=== PATIENT | female | born 1965 | race Caucasian/White ===

== ENCOUNTER 2022-10-03 16:10 | Outpatient (REF) | payer MEDICAID, SELFPAY ==
[2022-10-03 17:46] LABS: Bilirubin Negative (Negative); Blood Small (Negative); Clarity Clear (Clear); Glucose Negative (Negative); Ketones Negative (Negative); Leukocyte Esterase Negative (Negative); Nitrite Negative (Negative); Urobilinogen 0.2 EU/dL (Up TO 0.2)
[2022-10-03 18:06] LABS: Bacteria Negative HPF (Negative); C & S Indicated? No; Casts Negative LPF (Negative); Crystals Negative HPF (Negative); Epithelial Cells Few HPF (Negative); Mucus Negative (Negative)
== END 2022-10-03 16:11 | disposition home or self-care (01) ==
LOC: LBN 16:10
PROVIDERS: PCP Nurse Practitioner Family; Visit Provider Nurse Practitioner Gerontology
DX: R31.9 Hematuria, unspecified (principal)
CPT/HCPCS: 81003; 81015

== ENCOUNTER 2022-10-31 08:04 | Day surgery (SDC) | payer MEDICAID, SELFPAY ==
[2022-10-31 08:19] VITALS: BP 127/71; PULSE 63; RESP 16; TEMP 36.7; O2SAT 100
[2022-10-31] MEDS: Lactated Ringers 1,000 ML 80 ML IV (08:40)
--- NOTE | 2022-10-31 09:01 | ANES.PREOP_ITS ---
General Info Date of Service Date Performed: 10/31/22 Height: 5 ft 6 in Weight: 53.5 kg Body Mass Index (BMI): 19.0 Surgical Procedure: Operation Date: 10/31/22 09:40 Proposed Procedure Side Surgeon p Cystoscopy/Retrograde Bilateral Pato Cody MD Meds Allergies and Home Medications Allergies Allergy/AdvReac Type Severity Reaction Status Date / Time tetracycline Allergy vomitting Unverified 10/30/22 14:39 chantix Allergy worsening Uncoded 10/30/22 14:39 mood nicotine Allergy skin rash Uncoded 10/30/22 14:39 with patch wellburtrin Allergy tongue Uncoded 10/30/22 14:39 swelling Home Medication Medication Instructions Recorded L.acidoph, paracasei,B. lactis 10 10 cell PO TID 06/05/22 billion cell capsule (Digestive Advantage Advanced Probiotic) albuterol sulfate 90 mcg/actuation 2 puff inhalation Q6H PRN 06/05/22 aerosol inhaler (ProAir HFA) nicotine 10 mg inhalation 1 inh inhalation 4-6XD PRN 06/05/22 cartridge (Nicotrol) pantoprazole 40 mg tablet,delayed 40 mg PO DAILY 06/05/22 release propylene glycol 0.6 % eye drops 1 drp ophthalmic (eye) DAILY PRN 06/05/22 (Systane Balance) azathioprine 50 mg tablet 50 mg PO DAILY 10/03/22 budesonide 3 mg 3 mg PO DAILY 10/03/22 capsule,delayed,extended release Current Visit Medications: Current Medications Generic Name Dose Route Start Last Admin Trade Name Freq PRN Reason Stop Dose Admin Ringer's Solution 1,000 mls @ 80 mls/hr 10/31/22 06:00 10/31/22 08:40 IV 11/29/22 23:59 80 mls/hr INFUSION ROBERT Administration Cefazolin Sodium/Dextrose 2 gm in 50 mls @ 100 mls/hr 10/31/22 06:00 Ancef Duplex IVPB 11/29/22 23:59 PREOP ROBERT IV Miscellaneous Supplies 1 each 10/31/22 06:00 Iv Access IV 11/29/22 23:59 DIRECTED ROBERT Sodium Chloride 0 ml 10/31/22 06:00 Normal Saline Flush 10 Ml Syr IV 11/29/22 23:59 PRN PRN Sodium Chloride 0 ml 10/31/22 06:00 Normal Saline 10 Ml Vial IJ 11/29/22 23:59 DIRECTED PRN Sterile Water 0 ml 10/31/22 06:00 Water,Injection,Sterile 10 Ml Vial IJ 11/29/22 23:59 DIRECTED PRN PFSH Active Problems Active Problems: Problem Status Onset Code Tobacco abuse Z72.0 Dysthymia F34.1 Hyperlipidemia E78.5 Elevated liver enzymes R74.8 GERD (gastroesophageal reflux disease) K21.9 Chronic abdominal pain R10.9, G89.29 Chronic diarrhea K52.9 Urinary frequency R35.0 Hematuria R31.9 Medical History Medical History Headache Tobacco use Surgical History Surgical History Ligation of fallopian tube Vaginal hysterectomy 2007 for fibroid uterus. ovarian conservation. Unclear if fallopian tubes remain. Tobacco Smoking/Tobacco Use Status: Current every day Tobacco Type: cigarettes Alcohol Alcohol Intake: current Alcohol intake frequency: holidays/special occasions only Substance Use Substance use: Never Substance use type: does not use Vital Signs and Lab Results Vital Signs Most Recent Vital Signs in EMR: Most Recent Vital Signs Temp Pulse Resp BP Pulse Ox 36.7 C 63 16 127/71 100 10/31/22 08:19 10/31/22 08:19 10/31/22 08:19 10/31/22 08:19 10/31/22 08:19 Lab Results Blood Type / Crossmatch: No Data to Display Complete Blood Count: No Data to Display Complete Metabolic Panel: No Data to Display Liver Function Panel: No Data to Display Coagulation Panel: No Data to Display Cardiac Panel: No Data to Display Arterial Blood Gas: No Data to Display Venous Blood Gas: No Data to Display Pancreas Panel: No Data to Display Thyroid Panel: No Data to Display Infectious Disease: No Data to Display Blood Cultures: No Data to Display Toxicology Panel: No Data to Display Anesthesia Assessment and Plan Anesthesia History Personal History: No History of Anesthesia Complications Family History: No Family History of Anesthesia Complications Exercise Tolerance Exercise Tolerance: Metabolic Equivalents>4 Pertinent Negatives Pertinent Negatives: No Symptoms of GERD, No Major Cardiovascular Symptoms or Complaints, No Major Pulmonary Symptoms or Complaints and No History of CVA/TIA Cardiac & Pulmonary Exam Cardiac Exam: Normal S1/S2 Heart Sounds Pulmonary Exam: Clear Bilateral Breath Sounds Implantable Cardiac Device Does patient have a Pacemaker or an ICD?: No Airway Exam Known Difficult Airway: No Mallampati Class: 2 Mouth Opening: Normal (> 3cm) Thyromental Distance: Greater than 3 cm Neck Range of Motion: Full ROM Neck Circumference: Normal Teeth Condition: Normal Dentition ASA Classification ASA Score: ASA 2 Emergency Case?: No NPO Status NPO Status: NPO Clears >2 hours, Solids >8 hours Anesthesia Plan Resuscitation Status: Full Code Anesthesia Technique: General Anesthesia Airway Planned: Natural Airway Monitors Used: Standard Monitors Preoperative Comments:: History of GERD symptoms and not on anything for it at this time. Reviewed recent EGD/[facility] at [facility] [place], conscious sedation used, no ETT. Will wedge the patient and continue with original plan of GETA with natural airway.
[2022-10-31 09:02] VITALS: BMI 19.0
--- NOTE | 2022-10-31 09:08 | W.PM.HP.N ---
Date of service: 10/31/22 Time of Service: 09:11 Assessment and Plan Assessment and plan (1) Hematuria: Status: Acute Assessment and plan: We will complete her microscopic hematuria work-up with a cystoscopy and bilateral retrograde pyelogram. We will be prepared to take a bladder biopsy or do a transurethral resection if we find any bladder pathology. History of Present Illness History of Present Illness Chief Complaint: Hematuria Narrative: This is a 57-year-old woman who has a history of microscopic hematuria. She had a negative hematuria work-up in 2016. In the past year, she had an episode of gross painless hematuria. The gross hematuria has resolved, but she continues to have greater than 3-5 red blood cells per high-power field on microscopic urinalysis. She has recently had a renal ultrasound at an outside facility which showed no evidence of renal mass or stone. She presents for cystoscopy with bilateral retrograde pyelogram to complete her hematuria work-up. Review of Systems Narrative: No fevers or chills No vision change or dysphasia No diabetes or thyroid dysfunction No shortness of breath, cough or hemoptysis No chest pain or palpitations GERD. Recent upper endoscopy and colonoscopy with polypectomy. No seizures, strokes or peripheral neuropathy No bleeding disorders or anemia No gout PFSH All Active Problems Tobacco abuse (Acute) Dysthymia (Acute) Hyperlipidemia (Acute) Elevated liver enzymes (Acute) GERD (gastroesophageal reflux disease) (Chronic) Chronic abdominal pain (Acute) Chronic diarrhea (Acute) Urinary frequency (Acute) Hematuria (Acute) Medical History Headache Tobacco use Surgical History Ligation of fallopian tube Vaginal hysterectomy 2007 for fibroid uterus. ovarian conservation. Unclear if fallopian tubes remain. Social History Smoking/Tobacco Use Status: Current every day Tobacco Type: cigarettes Smoking risk assessment performed?: Yes Alcohol Intake: current Alcohol Intake frequency: holidays/special occasions only Drug use: Never Substance use type: does not use Do you feel safe at home: Yes Do you feel safe in your relationship?: Yes Meds Allergies and Home Medications Allergies Allergy/AdvReac Type Severity Reaction Status Date / Time tetracycline Allergy vomitting Unverified 10/30/22 14:39 chantix Allergy worsening Uncoded 10/30/22 14:39 mood nicotine Allergy skin rash Uncoded 10/30/22 14:39 with patch wellburtrin Allergy tongue Uncoded 10/30/22 14:39 swelling Home Medications Medication Instructions Recorded Confirmed Type L.acidoph, paracasei,B. lactis 10 10 cell PO TID 06/05/22 10/31/22 History billion cell capsule (Digestive Advantage Advanced Probiotic) albuterol sulfate 90 mcg/actuation 2 puff inhalation Q6H PRN 06/05/22 10/31/22 History aerosol inhaler (ProAir HFA) nicotine 10 mg inhalation 1 inh inhalation 4-6XD PRN 06/05/22 10/31/22 History cartridge (Nicotrol) pantoprazole 40 mg tablet,delayed 40 mg PO DAILY 06/05/22 10/31/22 History release propylene glycol 0.6 % eye drops 1 drp ophthalmic (eye) DAILY PRN 06/05/22 10/31/22 History (Systane Balance) azathioprine 50 mg tablet 50 mg PO DAILY 10/03/22 10/31/22 History budesonide 3 mg 3 mg PO DAILY 10/03/22 10/31/22 History capsule,delayed,extended release Exam Const General: cooperative Neck Neck: supple Resp Effort & Inspection: normal respiratory effort Auscultation: clear to auscultation bilaterally Cardio Rate: regular rate Rhythm: regular rhythm GI Palpation: soft and no masses Neuro General: patient alert, patient awake and patient oriented x3 Results Last Vital Signs Temp 36.7 C 10/31/22 08:19 Pulse 63 10/31/22 08:19 Resp 16 10/31/22 08:19 BP 127/71 10/31/22 08:19 Pulse Ox 100 10/31/22 08:19 Time Spent Time spent with Patient: <40 minutes Time was spent: other
--- NOTE | 2022-10-31 09:09 | W.ANESPRE ---
General Info Date of Service Date Performed: 10/31/22 Height: 5 ft 6 in Weight: 53.5 kg Body Mass Index (BMI): 19.0 Surgical Procedure: Operation Date: 10/31/22 09:40 Proposed Procedure Side Surgeon p Cystoscopy/Retrograde Bilateral Pato Cody MD Meds Allergies and Home Medications Allergies Allergy/AdvReac Type Severity Reaction Status Date / Time tetracycline Allergy vomitting Unverified 10/30/22 14:39 chantix Allergy worsening Uncoded 10/30/22 14:39 mood nicotine Allergy skin rash Uncoded 10/30/22 14:39 with patch wellburtrin Allergy tongue Uncoded 10/30/22 14:39 swelling Home Medication Medication Instructions Recorded L.acidoph, paracasei,B. lactis 10 10 cell PO TID 06/05/22 billion cell capsule (Digestive Advantage Advanced Probiotic) albuterol sulfate 90 mcg/actuation 2 puff inhalation Q6H PRN 06/05/22 aerosol inhaler (ProAir HFA) nicotine 10 mg inhalation 1 inh inhalation 4-6XD PRN 06/05/22 cartridge (Nicotrol) pantoprazole 40 mg tablet,delayed 40 mg PO DAILY 06/05/22 release propylene glycol 0.6 % eye drops 1 drp ophthalmic (eye) DAILY PRN 06/05/22 (Systane Balance) azathioprine 50 mg tablet 50 mg PO DAILY 10/03/22 budesonide 3 mg 3 mg PO DAILY 10/03/22 capsule,delayed,extended release Current Visit Medications: Current Medications Generic Name Dose Route Start Last Admin Trade Name Freq PRN Reason Stop Dose Admin Ringer's Solution 1,000 mls @ 80 mls/hr 10/31/22 06:00 10/31/22 08:40 IV 11/29/22 23:59 80 mls/hr INFUSION ROBERT Administration Cefazolin Sodium/Dextrose 2 gm in 50 mls @ 100 mls/hr 10/31/22 06:00 Ancef Duplex IVPB 11/29/22 23:59 PREOP ROBERT IV Miscellaneous Supplies 1 each 10/31/22 06:00 Iv Access IV 11/29/22 23:59 DIRECTED ROBERT Sodium Chloride 0 ml 10/31/22 06:00 Normal Saline Flush 10 Ml Syr IV 11/29/22 23:59 PRN PRN Sodium Chloride 0 ml 10/31/22 06:00 Normal Saline 10 Ml Vial IJ 11/29/22 23:59 DIRECTED PRN Sterile Water 0 ml 10/31/22 06:00 Water,Injection,Sterile 10 Ml Vial IJ 11/29/22 23:59 DIRECTED PRN PFSH Active Problems Active Problems: Problem Status Onset Code Tobacco abuse Z72.0 Dysthymia F34.1 Hyperlipidemia E78.5 Elevated liver enzymes R74.8 GERD (gastroesophageal reflux disease) K21.9 Chronic abdominal pain R10.9, G89.29 Chronic diarrhea K52.9 Urinary frequency R35.0 Hematuria R31.9 Medical History Medical History Headache Tobacco use Surgical History Surgical History Ligation of fallopian tube Vaginal hysterectomy 2007 for fibroid uterus. ovarian conservation. Unclear if fallopian tubes remain. Tobacco Smoking/Tobacco Use Status: Current every day Tobacco Type: cigarettes Alcohol Alcohol Intake: current Alcohol intake frequency: holidays/special occasions only Substance Use Substance use: Never Substance use type: does not use Vital Signs and Lab Results Vital Signs Most Recent Vital Signs in EMR: Most Recent Vital Signs Temp Pulse Resp BP Pulse Ox 36.7 C 63 16 127/71 100 10/31/22 08:19 10/31/22 08:19 10/31/22 08:19 10/31/22 08:19 10/31/22 08:19 Lab Results Blood Type / Crossmatch: No Data to Display Complete Blood Count: No Data to Display Complete Metabolic Panel: No Data to Display Liver Function Panel: No Data to Display Coagulation Panel: No Data to Display Cardiac Panel: No Data to Display Arterial Blood Gas: No Data to Display Venous Blood Gas: No Data to Display Pancreas Panel: No Data to Display Thyroid Panel: No Data to Display Infectious Disease: No Data to Display Blood Cultures: No Data to Display Toxicology Panel: No Data to Display Anesthesia Assessment and Plan Anesthesia History Personal History: No History of Anesthesia Complications Family History: No Family History of Anesthesia Complications Exercise Tolerance Exercise Tolerance: Metabolic Equivalents>4 Cardiac & Pulmonary Exam Cardiac Exam: Normal S1/S2 Heart Sounds Pulmonary Exam: Clear Bilateral Breath Sounds Implantable Cardiac Device Does patient have a Pacemaker or an ICD?: No Airway Exam Known Difficult Airway: No Mallampati Class: 2 Mouth Opening: Normal (> 3cm) Thyromental Distance: Greater than 3 cm Neck Range of Motion: Full ROM Neck Circumference: Normal Teeth Condition: Normal Dentition
[2022-10-31] MEDS: ceFAZolin 2 GM/50 ML BAG IVPB (09:40)
[2022-10-31] MEDS: Lidocaine 2% Jelly 6 ML SYR (09:52)
[2022-10-31] MEDS: Omnipaque 300 MG/ML 50 ML BTL (09:54)
--- NOTE | 2022-10-31 09:59 | DI.RAD_ITS ---
Exam(s) XR RETROGRADE IN OR EXAM: XR RETROGRADE IN OR CLINICAL HISTORY: retrograde in or. TECHNIQUE: 2D digital imaging was performed. COMPARISON: No exams were available for comparison FINDINGS: Fluoroscopy was provided during retrograde urologic procedure. See procedure report for details. Total fluoroscopy time 31.8 seconds IMPRESSION: Radiation exposure index/cumulative radiation dose: bridgett Casper= 4.55mGy DATA REPOSITORY: RADIATION DOSE DELIVERED:
--- NOTE | 2022-10-31 10:02 | W.PM.DSUDISC ---
Date of service: 10/31/22 Time of Service: 10:02 Discharge Plan Disposition Patient Disposition: Home Condition: Stable Discharge Details Reason For Visit: cystoscopy Attending Provider: Pato Cody Primary Care Provider: Mary Christianson Home Meds and New Rx's Prescriptions: No Action azathioprine 50 mg tablet 50 mg PO DAILY budesonide 3 mg capsule,delayed,extend.release 3 mg PO DAILY Nicotrol 10 mg cartridge 1 inh inhalation 4-6XD PRN albuterol sulfate [ProAir HFA] 90 mcg/actuation HFA aerosol inhaler 2 puff inhalation Q6H PRN pantoprazole 40 mg tablet,delayed release (DR/EC) 40 mg PO DAILY Systane Balance 0.6 % drops 1 drp ophthalmic (eye) DAILY PRN Digestive Advantage Advanced 10 billion cell capsule 10 cell PO TID Discharge Instructions Additional Instructions: followup 1 year for microscopic urinalysis Activity:: Activity as Tolerated Shower/Bathe:: 24 hours Diet:: As Tolerated Discharge Orders Discharge Orders: Discharge Order (Routine); Ordered 10/31/22 Ordered By: Pato Cody DS: Diagnosis Discharge Diagnosis (1) Hematuria: Status: Acute
--- NOTE | 2022-10-31 10:04 | ROE_ITS ---
Date of service: 10/31/22 Time of Service: 10:04 Operative Note Operative Note DATE OF PROCEDURE: 10/31/22 PRE-OP DIAGNOSIS: Microscopic hematuria POST-OP DIAGNOSIS: same PROCEDURE: cystoscopy, bilateral retrograde pyelogram SURGEON: Pato Cody ANESTHESIA TYPE: General:No Airway Refer to Anesthesia Record ESTIMATED BLOOD LOSS: 0 PATHOLOGY: none sent COMPLICATIONS: None Patient was transported to: same day Patient's condition: stable Implants: none Indications: This is a 57-year-old woman who has a history of persistent microscopic hematuria. She had a negative hematuria work-up about 6 years ago. At that time she had a normal CT urogram and normal cystoscopy. She is recently been evaluated with a renal ultrasound. The ultrasound raise the question of some fullness of the right renal pelvis along with the possibility of a duplicated left collecting system. No solid renal masses or stones were seen. She presents now for cystoscopy and retrograde pyelogram to complete her hematuria work-up. Findings: normal bladder and ureters single ureter both sides Procedure Description: The patient was given preoperative antibiotics and brought to the operating room on 10/31/2022. After successful induction of general anesthesia without intubation, she was placed in the dorsal lithotomy position. Her genitalia was prepped and draped. 2% Xylocaine jelly was instilled into the urethra to act as a local anesthetic. A 22 Estonian rigid cystoscope was passed through the urethra into the bladder. Urethra and bladder were inspected with a 30 degree lens. Both ureteral orifices appeared normal. A single orifice was seen on each side. No blood was seen coming from either orifice. Each orifice was then cannulated with a 5 Estonian access catheter. Retrograde pyelograms were obtained by injecting Omnipaque through the access catheter under fluoroscopic guidance. No filling defects were seen along the course of the ureters or in the collecting systems. A prominent renal pelvis was seen on the right. This was previously found on her CT urogram as well. Both sides drained promptly on a 5- minute drainage film. The remainder the bladder was then reinspected using both the 30 and 70 degree lens. No papillary or nodular lesions were seen throughout the bladder. Based on today's examination, there is no evidence of significant uropathology. The bladder was emptied and the scope was removed.
[2022-10-31 10:06] VITALS: BP 101/70; PULSE 64; RESP 16; TEMP 36.3; O2SAT 95
[2022-10-31 10:35] VITALS: BP 123/68; PULSE 54; RESP 16; TEMP 36.5; O2SAT 97
--- NOTE | 2022-10-31 10:54 | W.ANESPOSTOP ---
Postoperative Evaluation Date, Time and Location Date Performed: 10/31/22 Time Performed: 10:54 Patient Location: Day Surgery Unit Vital Signs Most Recent Imported Vital Signs: Most Recent Vital Signs Temp Pulse Resp BP Pulse Ox 36.5 C 54 L 16 123/68 97 10/31/22 10:35 10/31/22 10:35 10/31/22 10:35 10/31/22 10:35 10/31/22 10:35 Pain Score Most Recent Pain Score: Most Recent Pain Score Pain Level 0 10/31/22 10:35 Assessment Mental Status: Awake (Alert & Oriented to Patient Baseline) Airway and Respiratory Function: Patent airway with normal (patient baseline) respiratory exam Cardiovascular Function: Hemodynamically Stable Hydration Status: Adequately Hydrated Nausea & Vomiting: No Nausea or Vomiting Pain: Pt. Denies Any Pain Peripheral Nerve Block: Patient did not receive a nerve block
== END 2022-10-31 11:00 | disposition home or self-care (01) ==
PROVIDERS: PCP Nurse Practitioner Family; Visit Provider Urology
PROC: (CPT 74450; principal; 2022-10-31 09:30)
DX: R31.21 Asymptomatic microscopic hematuria (principal)
CPT/HCPCS: 52005; 74420; J0690; J2405; J2704; Q9967